=== PATIENT | female | born 1990 | race Hispanic/Latino ===

== ENCOUNTER 2021-08-14 15:08 | Emergency (ER) | payer OTHER ==
[~2021-08-14] VITALS: Ht 172.7 cm; Wt 82.5 kg
[2021-08-14 15:09] VITALS: BP 128/85
[2021-08-17 16:08] LABS: BETA-2 GLYCOPROTEIN I ABY IGA <9 (0-25); BETA-2 GLYCOPROTEIN I ABY IGG <9 (0-20); BETA-2 GLYCOPROTEIN I ABY IGM <9 (0-32); CARDIOLIPIN IGA ANTIBODY <9 APL U/mL (0-11); CARDIOLIPIN IGG ANTIBODY <9 GPL U/mL (0-14); CARDIOLIPIN IGM ANTIBODY 14 MPL U/mL (0-12); FACTOR VIII AG (VON WILLEBRAN) 102 % (50-200); PHOSPHOLIPIDS LEVEL 221 mg/dL (150-250)
[2021-08-18 10:28] LABS: DRVV SCREEN 44.5 SEC
[2021-08-18 10:38] LABS: PTT LUPUS TYPE ANTICOAG SCREEN 1.2 (0-1.2)
[2021-08-18 11:11] LABS: DRVV CONFIRM 36.6 SEC; LUPUS CONFIRM RATIO 0.9
[2021-08-18 11:15] LABS: NORMALIZED RATIO 1.33 (0.00-1.20)
[2021-08-19 16:08] LABS: HEXAGONAL PHASE PHOSPHOLIPID 2 sec (0-11)
== END 2021-08-14 18:59 | disposition home or self-care (01) ==
LOC: M ED 15:08
DX: O20.8 Other hemorrhage in early pregnancy (principal); O99.111 Other diseases of the blood and blood-forming organs and certain disorders involving the immune mechanism complicating pregnancy, first trimester; D68.0 Von Willebrand disease; D68.61 Antiphospholipid syndrome; Z3A.01 Less than 8 weeks gestation of pregnancy